=== PATIENT | male | born 1970 | race Two or more races ===

== ENCOUNTER 2017-02-08 17:17 | Inpatient (IN) | payer MEDICAID ==
[~2017-02-08] VITALS: Ht 177.8 cm; Wt 112.0 kg
[~2017-02-08 17:17] MED LIST: AMOX-263 PO; AZIT250T5 PO; FURO20TA PO; LORA-654 PO; POTA10IN PO
[2017-02-08] MEDS ORDERED: SODIUM CHLORIDE 0.9% 1,000 ML IV ONE (18:39)
[2017-02-08] MEDS ORDERED: cefTRIAXone 1GM/50ML D5W 50 ML IV ONE (18:45)
[2017-02-08] MEDS ORDERED: VANCOMYCIN 1GM/250ML D5W 250 ML IV ONE (18:45)
[2017-02-08 18:56] LABS: Basophils # (auto) 0 uL; Basophils % (auto) 0.4 % (0.0-2.0); Eosinophils # (auto) 1.4 uL; Eosinophils % (auto) 11.9 % (0.0-7.0); Hematocrit 44.9 % (41.0-53.0); Hemoglobin 14.8 g/dL (13.5-17.5); Lymphocytes # (auto) 1.9 uL; Lymphocytes % (auto) 16.2 % (10.0-50.0); Mean Corpuscular Hemoglobin 31.5 pg (28.0-32.0); Mean Corpuscular Hgb Conc. 33.1 g/dL (32.0-36.0); Mean Corpuscular Volume 95.2 fL (80.0-100.0); Mean Platelet Volume 8.1 fL (6.9-10.8); Monocytes # (auto) 1.1 uL; Monocytes % (auto) 9.3 % (0.0-12.0); Neutrophils # (auto) 7.4 uL; Neutrophils % (auto) 62.2 % (37.0-80.0); Nucleated Red Blood Cells % 0.1 %; Platelet Count (auto) 308 10^3/uL (140-450); Red Cell Distribution Width 13.8 % (11.8-14.3); White Blood Cell 11.9 10^3/uL (4.4-10.8)
[2017-02-08 19:15] LABS: Albumin 3.7 g/dL (3.4-5.0); BUN/Creatinine Ratio 13.9; Calcium 8.5 mg/dL (8.5-10.1); Potassium 3.6 mmol/L (3.5-5.1)
[2017-02-08 19:17] LABS: Bilirubin, Total 0.7 mg/dL (0.2-1.0); Total Protein 7.6 g/dL (6.4-8.2)
[2017-02-08 19:29] LABS: INR 0.92 (0.9-1.15); Partial Thromboplastin Time 26.4 sec (22.64-33.71)
[2017-02-08] MEDS ORDERED: ONDANSETRON HCL 4 MG/2 ML VIAL IV ONE (20:30)
[2017-02-08] MEDS ORDERED: MORPHINE SULF INJ 2 MG/ML SYRINGE 1ML IV ONE (20:30)
[2017-02-09] MEDS ORDERED: ONDANSETRON HCL 4 MG/2 ML VIAL IV PRN (04:00)
[2017-02-09] MEDS ORDERED: LORazepam 0.5 MG TAB PO PRN (04:00)
[2017-02-09] MEDS ORDERED: VANCOMYCIN 1GM/250ML D5W 250 ML IV ONE (04:00)
[2017-02-09] MEDS: SODIUM CHLORIDE 0.9% 1,000 ML IV SCH ×3 (04:13→20:55)
[2017-02-09 04:50] VITALS: BP 130/94
[2017-02-09 05:11] VITALS: BP 130/94
[2017-02-09] MEDS: MORPHINE SULF INJ 2 MG/ML SYRINGE 1ML IV PRN ×4 (05:34→22:21)
[2017-02-09] MEDS: LEVOTHYROXINE SODIUM 25 MCG TAB PO SCH (07:07)
[2017-02-09 07:50] VITALS: BP 133/74
[2017-02-09] MEDS: LITHIUM CARBONATE 300 MG TAB PO SCH ×2 (10:27→20:55)
[2017-02-09] MEDS ORDERED: TEMA15CA91 PO (10:48)
[2017-02-09] MEDS ORDERED: LITH300C3 PO (10:48)
[2017-02-09] MEDS ORDERED: LEVO25TA6 PO (10:48)
[2017-02-09] MEDS ORDERED: PAR20T PO (10:48)
[2017-02-09] MEDS ORDERED: PRA1C PO (10:48)
[2017-02-09 12:33] VITALS: BP 127/81
[2017-02-09 17:00] VITALS: BP 116/75
[2017-02-09] MEDS ORDERED: cefTRIAXone 1GM/50ML D5W 50 ML IV SCH (22:00)
[2017-02-09 22:20] VITALS: BP 130/75
[2017-02-10 05:05] VITALS: BP 133/82
[2017-02-10] MEDS: SODIUM CHLORIDE 0.9% 1,000 ML IV SCH ×2 (05:54→11:32)
[2017-02-10] MEDS: LEVOTHYROXINE SODIUM 25 MCG TAB PO SCH (06:30)
[2017-02-10 06:40] LABS: Hematocrit 41.7 % (41.0-53.0); Hemoglobin 14.2 g/dL (13.5-17.5); Mean Corpuscular Hemoglobin 32.6 pg (28.0-32.0); Mean Corpuscular Hgb Conc. 34.1 g/dL (32.0-36.0); Mean Corpuscular Volume 95.7 fL (80.0-100.0); Mean Platelet Volume 8.2 fL (6.9-10.8); Platelet Count (auto) 282 10^3/uL (140-450); Red Cell Distribution Width 14.1 % (11.8-14.3); White Blood Cell 9.6 10^3/uL (4.4-10.8)
[2017-02-10 06:44] LABS: Metamyelocytes % 0; Myelocytes % 0; Promyelocytes % 0; Reactive Lymphocytes 0
[2017-02-10 07:04] LABS: Albumin 3.1 g/dL (3.4-5.0); BUN/Creatinine Ratio 13.8; Calcium 8.5 mg/dL (8.5-10.1); Potassium 3.8 mmol/L (3.5-5.1)
[2017-02-10 07:07] LABS: Bilirubin, Total 0.3 mg/dL (0.2-1.0); Total Protein 6.8 g/dL (6.4-8.2)
[2017-02-10 08:25] VITALS: BP 154/81
[2017-02-10 09:18] LABS: Giant Platelets Few; Large Platelets FEW; Platelet Estimate Adequate
[2017-02-10] MEDS: LITHIUM CARBONATE 300 MG TAB PO SCH (11:29)
[2017-02-10 12:14] VITALS: BP 144/73
[2017-02-10] MEDS ORDERED: LORazepam 0.5 MG TAB PO PRN (14:45)
[2017-02-10 17:12] VITALS: BP 154/81
[2017-02-10 17:27] VITALS: BP 141/91
[2017-02-10] MEDS ORDERED: PRAZOSIN HCL 1 MG CAP PO ONE (18:00)
[2017-02-10] MEDS ORDERED: TEMAZEPAM 15 MG CAP PO ONE (18:00)
[2017-02-10] MEDS ORDERED: PRAZOSIN HCL 1 MG CAP PO SCH (22:00)
[2017-02-10] MEDS ORDERED: LITHIUM CARBONATE 300 MG TAB PO ONE (22:00)
[2017-02-10] MEDS ORDERED: TEMAZEPAM 15 MG CAP PO SCH (22:00)
[2017-02-10] MEDS ORDERED: LITHIUM CARBONATE 300 MG TAB PO SCH (22:00)
[2017-02-11] MEDS ORDERED: LEVOTHYROXINE SODIUM 25 MCG TAB PO SCH (07:00)
[2017-02-11] MEDS ORDERED: PARoxetine 20 MG TAB PO SCH (10:00)
== END 2017-02-10 17:45 | disposition home health service (06) | DRG 383 ==
LOC: ER 17:18 → OVERFLOW 17:19 → WEST WING 02-09 04:50
PROVIDERS: ADMIT Family Medicine; ATTEND Family Medicine
DX: L03.115 Cellulitis of right lower limb (principal); F43.10 Post-traumatic stress disorder, unspecified; L02.415 Cutaneous abscess of right lower limb; L40.9 Psoriasis, unspecified
CPT/HCPCS: 36415; 80053; 85007; 85025; 85027; 85610; 85730; 87040; 93971; 96361; 96365; 96367; 96375; J0696; J2405

== ENCOUNTER 2022-10-16 13:52 | Emergency (ER) | payer MEDICAID, OTHER ==
[~2022-10-16] VITALS: Ht 175.3 cm; Wt 114.9 kg
[~2022-10-16 13:52] MED LIST changes: -AMOX-263 PO; -AZIT250T5 PO; -FURO20TA PO; +LEVO25TA6 PO; +LITH300C3 PO; +LORA-1121 PO; -LORA-654 PO; +PAR20T PO; -POTA10IN PO; +PRA1C PO; +TEMA15CA2 PO
[2022-10-16] MEDS ORDERED: PIPERACILLIN-TAZOB 3.375GM 100 ML IV ONE (14:45)
[2022-10-16] MEDS ORDERED: SODIUM CHLORIDE 0.9% 1,000 ML IV ONE (14:45)
[2022-10-16 15:10] LABS: Basophils # (auto) 0.1 10 ^3/uL (0-0.2); Basophils % (auto) 1.3 % (0.0-2.0); Eosinophils # (auto) 0.5 10 ^3/uL (0-0.8); Eosinophils % (auto) 6.1 % (0.0-7.0); Hematocrit 45.4 % (41.0-53.0); Hemoglobin 15.3 g/dL (13.5-17.5); Lymphocytes # (auto) 1.7 10 ^3/uL (0.4-5.4); Lymphocytes % (auto) 21.6 % (10.0-50.0); Mean Corpuscular Hemoglobin 31.3 pg (28.0-32.0); Mean Corpuscular Hgb Conc. 33.7 g/dL (32.0-36.0); Mean Corpuscular Volume 92.7 fL (80.0-100.0); Monocytes # (auto) 0.7 10 ^3/uL (0-1.3); Neutrophils # (auto) 4.9 10 ^3/uL (1.6-8.6); Red Blood Cells 4.89 10^6/uL (4.5-5.90); Red Cell Distribution Width 13.5 % (11.8-14.3); White Blood Cell 7.8 10^3/uL (4.4-10.8)
[2022-10-16 15:26] LABS: INR 0.97 (0.9-1.15); Partial Thromboplastin Time 27.3 sec (24.6-33.4)
[2022-10-16 15:29] LABS: Albumin 3.3 g/dL (3.4-5.0); BUN/Creatinine Ratio 12.5 (10.0-20.0); Calcium 8.6 mg/dL (8.5-10.1)
[2022-10-16 15:31] LABS: Bilirubin, Total 0.5 mg/dL (0.2-1.0); Total Protein 7.1 g/dL (6.4-8.2)
[2022-10-16] MEDS ORDERED: CLIN300C70 PO (16:47)
[2022-10-16] MEDS ORDERED: CEPH250C PO (16:47)
[2022-10-16 17:11] VITALS: BP 151/86
== END 2022-10-16 17:13 | disposition home or self-care (01) ==
LOC: ER 13:52
DX: L03.116 Cellulitis of left lower limb (principal); F41.9 Anxiety disorder, unspecified; Z79.899 Other long term (current) drug therapy
CPT/HCPCS: 36415; 71045; 73700; 80053; 83605; 84484; 85025; 85610; 85730; 87040; 96365; 99285; J2543